=== PATIENT | female | born 1950 | race Caucasian/White ===

== ENCOUNTER 2017-07-04 07:52 | Emergency (ER) | payer MEDICARE, BC ==
[2017-07-04 08:38] VITALS: BP 149/77
--- NOTE | 2017-07-04 09:01 | UC ---
Throat Pain/Nasal Dat HPI - HPI Summary HPI Summary: ONE WEEK OF UPPER RESPIRATORY INFECTION, FEVER, COUGH, SINUS CONGESTION. NO THROAT PAIN. 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 Onset/Duration: Gradual Onset, Lasting Days Severity: Moderate Cough: Productive Associated Signs & Symptoms: Positive: Hoarseness, Nasal Discharge, Fever, Other - COUGH - Epiglottits Risk Factors Epiglottis Risk Factors: Negative - Allergies/Home Medications Allergies/Adverse Reactions: Allergies Allergy/AdvReac Type Severity Reaction Status Date / Time No Known Allergies Allergy Verified 07/04/17 08:01 PMH/Surg Hx/FS Hx/Imm Hx Previously Healthy: Yes - Surgical History Surgical History: None - Family History Known Family History: Negative: Respiratory Disease - Social History Occupation: Employed Full-time Lives: With Family Alcohol Use: Rare Substance Use Type: None Smoking Status (MU): Never Smoked Tobacco Review of Systems Constitutional: Fever Skin: Negative ENT: Ear Ache, Nasal Discharge, Sinus Congestion Respiratory: Cough Cardiovascular: Negative Gastrointestinal: Negative Genitourinary: Negative Motor: Negative Neurovascular: Negative Musculoskeletal: Negative Neurological: Negative Psychological: Negative Is Patient Immunocompromised?: No All Other Systems Reviewed And Are Negative: Yes Physical Exam Triage Information Reviewed: Yes Appearance: No Pain Distress, Well-Nourished, Ill-Appearing - MILDLY Vital Signs: Initial Vital Signs Temp 98 F 07/04/17 08:03 Pulse 90 07/04/17 08:03 Resp 18 07/04/17 08:03 BP 149/77 07/04/17 08:03 Pulse Ox 96 07/04/17 08:03 Vital Signs Reviewed: Yes Eye Exam: Normal ENT: Positive: Pharynx normal, Nasal congestion, TM bulging - BILATERAL S/P EAR IRRIGATION, TM dull, Other - BILATERAL CERUMEN IMPACTION Dental Exam: Normal Neck exam: Normal Respiratory Exam: Normal Respiratory: Positive: Chest non-tender, Lungs clear, Normal breath sounds, No respiratory distress, No accessory muscle use Cardiovascular Exam: Normal Cardiovascular: Positive: RRR, No Murmur, Pulses Normal Abdominal Exam: Normal Musculoskeletal Exam: Normal Neurological Exam: Normal Psychological Exam: Normal Skin Exam: Normal Throat Pain/Nasal Course/Dx - Differential Dx/Diagnosis Differential Diagnosis/HQI/PQRI: Pharyngitis, Sinusitis, Tonsillitis, URI Provider Diagnoses: SINUSITIS; BILATERAL CERUMEN IMPACTION; BRONCHITIS Discharge - Discharge Plan Condition: Stable Disposition: HOME Prescriptions: Amoxicillin/Clavulanate TAB* [Augmentin TAB 875*] 875 mg PO BID #20 tab Benzonatate CAP* [Tessalon 100 MG CAP*] 100 mg PO TID PRN #15 cap PRN Reason: Cough Patient Education Materials: Sinusitis (ED), Cerumen Impaction (ED), Acute Bronchitis (ED) Referrals: Valerie Rocha MD [Primary Care Provider] -
== END 2017-07-04 08:45 | disposition home or self-care (01) ==
LOC: UCEAST 07:52
DX: J32.9 Chronic sinusitis, unspecified (principal); J20.9 Acute bronchitis, unspecified; H61.23 Impacted cerumen, bilateral
CPT/HCPCS: 99213; G0463

== ENCOUNTER 2018-05-07 12:59 | Emergency (ER) | payer MEDICARE, BC ==
[2018-05-07 13:08] VITALS: BP 145/84
--- NOTE | 2018-05-07 13:57 | UC ---
Eye Complaint HPI - HPI Summary HPI Summary: In Room Note: The patient is a 67 y/o F presenting to [facility] with a chief complaint of left eye redness and drainage starting two days ago. She currently has a mild cold, which she has had since mid-March, which may be contributing to her current illness. She has recently had pink eye in spring 2017, which was treated with a a liquid medication. She denies chills, nausea, vomiting, and diarrhea. She has hx of seizures and Polio. She has FHx of cardiac disease. Note: Vital signs stable: BP 145/84, Afebrile. Visit history: noncontributory to present complaint. Hx of seizures and Polio. Nurse's Note: c/o left eye redness and drainage for one day. - History of Current Complaint Chief Complaint: UCEye Stated Complaint: EYE IRRITATION Time Seen by Provider: 05/07/18 13:43 Hx Obtained From: Patient ?: No Onset/Duration: Sudden Onset, Lasting Days - two days, Still Present Timing: Constant Severity Initially: Mild Severity Currently: Mild Pain Intensity: 0 Pain Scale Used: 0-10 Numeric Location of Injury: Conjunctiva - left Aggravating Factor(s): Nothing Alleviating Factor(s): Nothing Associated Signs And Symptoms: Positive: Drainage (Clear) - Allergies/Home Medications Allergies/Adverse Reactions: Allergies Allergy/AdvReac Type Severity Reaction Status Date / Time No Known Allergies Allergy Verified 05/07/18 13:11 PMH/Surg Hx/FS Hx/Imm Hx Endocrine History: Other Other Endocrine History: NEGATIVE: diabetes Cardiovascular History: Other Other Cardiovascular History: NEGATIVE: HTN Respiratory History: Bronchitis Neurological History: Seizures - Surgical History Surgical History: None - Family History Known Family History: Positive: Cardiac Disease Negative: Respiratory Disease - Social History Alcohol Use: Rare Substance Use Type: None Smoking Status (MU): Never Smoked Tobacco Review of Systems Constitutional: Negative Skin: Negative Eyes: Other - erythematous left eye with drainage ENT: Sinus Congestion Respiratory: Negative Cardiovascular: Negative Gastrointestinal: Negative Genitourinary: Negative Motor: Negative Neurovascular: Negative Musculoskeletal: Negative Neurological: Negative Psychological: Negative All Other Systems Reviewed And Are Negative: Yes - Comments Additional Review of Systems Comments: POSITIVE: erythematous left eye with drainage, sinus congestion; NEGATIVE: chills, nausea, vomiting, diarrhea Physical Exam - Summary Physical Exam Summary: Appearance: The patient is well-appearing, is in no pain distress, and is well- nourished. Eyes: Examination of the eye shows left eye diffusely injected particularly over the bulbar conjunctiva, PERLLA, EOM intact. ENT: The hearing is grossly normal, the pharynx is normal, and the TMs are normal. There is no muffled or hoarse voice. Mild discomfort of the maxillary sinuses. Crusting at distal nares. Neck: The neck is supple and there is no lymphadenopathy. Respiratory: The chest is nontender. The lungs are clear, there are normal breath sounds, and there is no respiratory distress. Cardiovascular: Heart is regular rate and rhythm. There is no murmur. Abdomen: The abdomen is soft and nontender. There is no organomegaly. Bowel sounds: present Musculoskeletal: Strength is intact. The patient moves all extremities. Neurological: The patient is alert. Motor and sensory examination grossly intact. Psychological: The patient displays age appropriate behavior Skin: Negative for rashes. Triage Information Reviewed: Yes Vital Signs: Initial Vital Signs Temp 98.9 F 05/07/18 13:05 Pulse 77 05/07/18 13:05 Resp 12 05/07/18 13:05 BP 145/84 05/07/18 13:05 Pulse Ox 97 05/07/18 13:05 Vital Signs Reviewed: Yes Eye Complaint Course/Dx - Course Course Of Treatment: 67 y/o f with cold and now has left eye conjuncivits. A 12 point review of systems was completed and significantly positive for: eye redness and drainage. The remainder of the review was negative except as stated above in the HPI. Medications have been included in the original chart and reviewed. Medications have been included in the original chart and reviewed. Patient will be referred to PCP within 1 day - 4 weeks for follow up for elevated BP. - Differential Dx/Diagnosis Provider Diagnoses: left eye conjunctivitis Discharge - Sign-Out/Discharge Documenting (check all that apply): Patient Departure - Patient will be discharged home. All imaging exams completed and their final reports reviewed: No Studies - Discharge Plan Condition: Stable Disposition: HOME Prescriptions: Polymyx/Trimethoprim OPTH* [Polytrim OPHTH*] 2 drop .SEE ORDER Q3H #1 btl MDD 5 DOSES A DAY Patient Education Materials: Conjunctivitis (ED) Referrals: Valerie Rocha MD [Primary Care Provider] - 1 Week Additional Instructions: Your blood pressure reading today was 145/84, indicating HYPERTENSION. Follow- up with your primary care provider within 4 weeks for blood pressure readings and further evaluation. PLEASE SEEK CARE AT THE EMERGENCY DEPARTMENT IF SYMPTOMS WORSEN OR IF NEW SYMPTOMS DEVELOP. FOLLOW UP WITH YOUR PRIMARY CARE PHYSICIAN. As we discussed, you have conjunctivitis of the left eye. Use the medication every 3 hours. As you improve, you can use the medicine every 4-6 hours. Total of 7 days. Use in right eye at night. Recheck if you get increased redness, pain or vision changes. - Billing Disposition and Condition Condition: STABLE Disposition: Home - Attestation Statements Document Initiated by Sha: Yes Documenting Scribe: Nieves Mckinney Provider For Whom Sha is Documenting (Include Credential): Dr. Terrence Cordoba MD Scribe Attestation: Nieves Phillips scribed for Dr. Terrence Cordoba MD on 05/07/18 at 1407. Scribe Documentation Reviewed: Yes Provider Attestation: The documentation as recorded by the Nieves mclean accurately reflects the service I personally performed and the decisions made by me, Dr. Terrence Cordoba MD
== END 2018-05-07 14:09 | disposition home or self-care (01) ==
LOC: UCEAST 12:59
DX: H10.32 Unspecified acute conjunctivitis, left eye (principal)
CPT/HCPCS: 99212; G0463

== ENCOUNTER 2019-04-02 18:45 | Emergency (ER) | payer MEDICARE, BC ==
[2019-04-02 18:57] VITALS: BP 139/69
--- NOTE | 2019-04-02 18:59 | UC ---
Eye Complaint HPI - HPI Summary HPI Summary: 68 yo female presents with LEFT eye redness and drainage since this morning. She tells me that yesterday she was at the [place] with her young grandchildren and was taking care of them most of the day. This morning she woke with a red left eye with clear/white discharge. Throughout the day her eye has been irritated and itchy. She denies trauma, FB in the eye, vision changes, or fever. She does not wear contacts. - History of Current Complaint Chief Complaint: UCEye Stated Complaint: EYE COMPLAINT Time Seen by Provider: 04/02/19 18:59 Hx Obtained From: Patient Onset/Duration: Sudden Onset Severity Currently: None Pain Intensity: 0 - Allergies/Home Medications Allergies/Adverse Reactions: Allergies Allergy/AdvReac Type Severity Reaction Status Date / Time clindamycin Allergy Rash Verified 02/25/19 11:33 PMH/Surg Hx/FS Hx/Imm Hx - Additional Past Medical History Additional PMH: Seizures - Surgical History Surgical History: None - Family History Known Family History: Positive: Cardiac Disease, Diabetes Negative: Hypertension, Respiratory Disease - Social History Lives: With Family Alcohol Use: None Substance Use Type: None Smoking Status (MU): Never Smoked Tobacco Have You Smoked in the Last Year: No Review of Systems All Other Systems Reviewed And Are Negative: Yes Skin: Positive: Negative Eyes: Positive: Drainage, Eye Redness ENT: Positive: Negative Respiratory: Positive: Negative Cardiovascular: Positive: Negative Neurovascular: Positive: Negative Neurological: Positive: Negative Psychological: Positive: Negative Physical Exam - Summary Physical Exam Summary: GENERAL: WDWN. No pain distress. SKIN: No rashes, sores, lesions, or open wounds. HEENT: Head: AT/NC Eyes: EOM intact. PERRLA. LEFT EYE: Mild scleral injection. Conjunctiva with mild erythema and inflammation. Mild clear discharge. RIGHT EYE : Conjunctiva clear without inflammation or discharge. No FBs appreciated Nose: NTTP maxillary and frontal sinus. NECK: Supple. Nontender. No lymphadenopathy. CHEST: No accessory muscle use. Breathing comfortably and in no distress. CV: Pulses intact. Cap refill <2seconds NEURO: Alert. PSYCH: Age appropriate behavior. Triage Information Reviewed: Yes Vital Signs: Initial Vital Signs Temp 97.9 F 04/02/19 18:52 Pulse 65 04/02/19 18:52 Resp 16 04/02/19 18:52 BP 139/69 04/02/19 18:52 Pulse Ox 99 04/02/19 18:52 Vital Signs Reviewed: Yes Eye Complaint Course/Dx - Course Course Of Treatment: Left eye conjunctivitis - Differential Dx/Diagnosis Provider Diagnosis: Left conjunctivitis Discharge - Sign-Out/Discharge Documenting (check all that apply): Patient Departure All imaging exams completed and their final reports reviewed: No Studies - Discharge Plan Condition: Stable Disposition: HOME Prescriptions: Ofloxacin 0.3% (Eye Drop) [Ocuflox OPTH 0.3% (Eye Drop)] 1 drop LEFT EYE QID #1 btl Patient Education Materials: Pterygium (ED), Conjunctivitis (ED) Referrals: Valerie Rocha MD [Primary Care Provider] - Additional Instructions: If you develop a fever, shortness of breath, chest pain, new or worsening symptoms - please call your PCP or go to the ED immediately. - Billing Disposition and Condition Condition: STABLE Disposition: Home - Attestation Statements Provider Attestation: I was available for consult. This patient was seen by the LONNIE. The patient was not presented to, seen by, or examined by me. -Vu
[2019-04-02] MEDS ORDERED: Ciprofloxacin 0.3% OPTH.SOL* BTL LEFT EYE ONE (19:07)
== END 2019-04-02 19:30 | disposition home or self-care (01) ==
LOC: UCEAST 18:45
DX: H10.9 Unspecified conjunctivitis (principal)
CPT/HCPCS: 99212; A9270-GY; G0463

== ENCOUNTER 2020-04-13 12:05 | Inpatient (IN) ==
[2020-04-13 14:23] LABS: Hematocrit 39 % (35-47); Hemoglobin 13.5 g/dL (12.0-16.0); Mean Corpuscular HGB Conc 35 g/dL (31-36); Mean Corpuscular Hemoglobin 32 pg (27-31); Mean Corpuscular Volume 93 fL (80-97); Mean Platelet Volume 7.6 fL (7.4-10.4); Platelet Count 144 10^3/uL (150-450); Red Cell Distribution Width 13 % (10-15); White Blood Count 23.7 10^3/uL (3.5-10.8)
[2020-04-13 14:48] LABS: INR 1.44 (0.82-1.09)
[2020-04-13 14:51] LABS: Rapid Strep Molecular Negative (Negative)
[2020-04-13 14:54] LABS: Albumin 4.3 g/dL (3.2-5.2); C Reactive Protein 359.45 mg/L (<8.01); EGFR African American 85.6 (>60); EGFR Non-African American 70.7 (>60); Globulin 2.1 g/dL (2-4); Potassium 3.8 mmol/L (3.5-5.0); Total Protein 6.4 g/dL (6.4-8.9)
[2020-04-13 15:06] LABS: ABS Neutrophils 0.2 10^3/ul (1.5-7.7)
[2020-04-13] MEDS ORDERED: NS 0.9% 1000 ml BAG 1,000 ML IV ONE ×2 (15:06→17:17)
[2020-04-13 16:02] LABS: ABS Lymphocytes 22.7 10^3/ul (1.0-4.8); ABS Monocytes 0.6 10^3/ul (0-0.8); ABS Nucleated RBC 0.1 10^3/ul; Lymphocyte % 96.8 %; Nucleated Red Blood Cells % 0.4
[2020-04-13] MEDS ORDERED: Cefepime 1 GM in Dextrose 1 GM/50 ML BAG IV ONE (16:22)
[2020-04-13] MEDS ORDERED: Cefepime 2 GM in Dextrose 2 GM/50 ML BAG IV SCH (18:00)
[2020-04-13 18:12] LABS: Urine Appearance Cloudy; Urine Bilirubin Negative (Negative); Urine Blood 2+ (Negative); Urine Color Yellow; Urine Glucose Negative (Negative); Urine Ketones 1+ (Negative); Urine Nitrite Negative (Negative); Urine Protein 2+(100 mg/dL) (Negative); Urine Specific Gravity 1.028 (1.010-1.030); Urine Urobilinogen Negative (Negative)
[2020-04-13 18:16] LABS: Urine Bacteria Absent (Absent); Urine Red Blood Cell 2+(6-10/hpf) (Absent); Urine Squamous Epithelial Cell Present (Absent); Urine White Blood Cell 3+(>20/hpf) (Absent)
[2020-04-13] MEDS: NS 0.9% 1000 ml BAG 1,000 ML IV SCH ×2 (19:12→20:02)
[2020-04-13] MEDS: Heparin 5000 UNITS/ML 1 mL VIAL SUBCUT SCH (21:55)
[2020-04-14] MEDS: Heparin 5000 UNITS/ML 1 mL VIAL SUBCUT SCH ×3 (05:21→20:19)
[2020-04-14] MEDS: NS 0.9% 1000 ml BAG 1,000 ML IV SCH ×2 (05:22→20:18)
[2020-04-14] MEDS: Cefepime 2 GM in Dextrose 2 GM/50 ML BAG IV SCH ×2 (05:22→17:14)
[2020-04-14 06:51] LABS: Hematocrit 33 % (35-47); Hemoglobin 11.6 g/dL (12.0-16.0); Mean Corpuscular HGB Conc 35 g/dL (31-36); Mean Corpuscular Hemoglobin 33 pg (27-31); Mean Corpuscular Volume 93 fL (80-97); Mean Platelet Volume 7.5 fL (7.4-10.4); Platelet Count 105 10^3/uL (150-450); Red Blood Count 3.57 10^6 /uL (3.70-4.87); Red Cell Distribution Width 14 % (10-15)
[2020-04-14 07:03] LABS: ABS Lymphocytes 16.4 10^3/ul (1.0-4.8); ABS Monocytes 0.5 10^3/ul (0-0.8); ABS Neutrophils 0.1 10^3/ul (1.5-7.7); ABS Nucleated RBC 0.1 10^3/ul; Eosinophil % 0.1 %; Lymphocyte % 96.2 %; Nucleated Red Blood Cells % 0.3
[2020-04-14 07:11] LABS: Albumin 3.2 g/dL (3.2-5.2); Albumin/Globulin Ratio 1.7 (1-3); BUN/Creatinine Ratio 25.5 (8-20); Calcium 7.8 mg/dL (8.6-10.3); EGFR African American 143.8 (>60); EGFR Non-African American 118.9 (>60); Globulin 1.9 g/dL (2-4); Potassium 3.4 mmol/L (3.5-5.0); Total Bilirubin 0.9 mg/dL (0.2-1.0); Total Protein 5.1 g/dL (6.4-8.9)
[2020-04-14] MEDS: Benzocaine/Menthol LOZ MT PRN ×2 (12:18→20:19)
[2020-04-15] MEDS: NS 0.9% 1000 ml BAG 1,000 ML IV SCH (04:44)
[2020-04-15] MEDS: Heparin 5000 UNITS/ML 1 mL VIAL SUBCUT SCH ×3 (04:55→20:48)
[2020-04-15] MEDS: Cefepime 2 GM in Dextrose 2 GM/50 ML BAG IV SCH (04:55)
[2020-04-15 06:26] LABS: Hematocrit 31 % (35-47); Hemoglobin 10.7 g/dL (12.0-16.0); Mean Corpuscular HGB Conc 35 g/dL (31-36); Mean Corpuscular Hemoglobin 32 pg (27-31); Mean Corpuscular Volume 93 fL (80-97); Mean Platelet Volume 8.4 fL (7.4-10.4); Platelet Count 107 10^3/uL (150-450); Red Blood Count 3.32 10^6 /uL (3.70-4.87); Red Cell Distribution Width 14 % (10-15); White Blood Count 18.4 10^3/uL (3.5-10.8)
[2020-04-15 06:42] LABS: ABS Monocytes 0.8 10^3/ul (0-0.8); Eosinophil % 0.1 %; Lymphocyte % 92.3 %; Nucleated Red Blood Cells % 0.1
[2020-04-15 06:44] LABS: Calcium 7.4 mg/dL (8.6-10.3); EGFR African American 170.6 (>60); Potassium 3.1 mmol/L (3.5-5.0)
[2020-04-15] MEDS ORDERED: Perflutren Lipid Microsphere 3 ML VIAL ONE (08:13)
[2020-04-15] MEDS ORDERED: Potassium Chlor 20 meq TAB.ER PO ONE (08:48)
[2020-04-15] MEDS: KCL 20 MEQ/100 ML IVPREMIX 20 MEQ/100 ML BAG IV SCH ×3 (09:43→17:20)
[2020-04-15 10:00] LABS: ABS Neutrophils 0.6 10^3/ul (1.5-7.7)
[2020-04-15] MEDS ORDERED: Lidocaine 2% 10 ML VIAL INJ ONE (12:00)
[2020-04-15] MEDS: Furosemide 40 mg/4 ml IV VIAL IV SCH ×2 (12:43→20:56)
[2020-04-15] MEDS ORDERED: Iodixanol (CONTRAST) 320 MG/ML 100 ML SDV IV ONE (14:20)
[2020-04-15 16:42] LABS: BUN/Creatinine Ratio 18.8 (8-20); EGFR African American 154.3 (>60); EGFR Non-African American 127.5 (>60); Potassium 3.7 mmol/L (3.5-5.0)
[2020-04-15] MEDS ORDERED: Piperacillin/Tazobac ADVAN 3.375 GM in NS 0.9% 100 ml BAG 100 ML IVPB ONE (16:48)
[2020-04-15] MEDS ORDERED: Zosyn per Pharmacy NOTE FOLLOW UP SCH (17:00)
[2020-04-15] MEDS ORDERED: Potassium Chloride LIQUID 20 MEQ/15 ML LIQUID PO ONE (17:00)
[2020-04-15] MEDS: ZOSYN 3.375 GM Q8H per EXTENDED INFUSION IV SCH (20:56)
[2020-04-16] MEDS: ZOSYN 3.375 GM Q8H per EXTENDED INFUSION IV SCH ×3 (04:25→21:05)
[2020-04-16] MEDS: Heparin 5000 UNITS/ML 1 mL VIAL SUBCUT SCH ×3 (05:13→22:55)
[2020-04-16 07:20] LABS: Calcium 7.2 mg/dL (8.6-10.3); EGFR African American 147.2 (>60); EGFR Non-African American 121.6 (>60); Magnesium 1.4 mg/dL (1.9-2.7)
[2020-04-16 07:28] LABS: Potassium 2.7 mmol/L (3.5-5.0)
[2020-04-16 07:46] LABS: Carbamazepine 15.6 mcg/mL (4.0-12.0)
[2020-04-16] MEDS ORDERED: Magnesium Sulfate 3 GM IV IVPB ONE (08:00)
[2020-04-16] MEDS: Furosemide 40 mg/4 ml IV VIAL IV SCH ×2 (08:39→21:27)
[2020-04-16] MEDS: Benzocaine/Menthol LOZ MT PRN (09:18)
[2020-04-16 09:21] LABS: Hematocrit 31 % (35-47); Hemoglobin 10.7 g/dL (12.0-16.0); Mean Corpuscular HGB Conc 35 g/dL (31-36); Mean Corpuscular Hemoglobin 32 pg (27-31); Mean Corpuscular Volume 93 fL (80-97); Mean Platelet Volume 7.9 fL (7.4-10.4); Platelet Count 133 10^3/uL (150-450); Red Cell Distribution Width 13 % (10-15); White Blood Count 29.1 10^3/uL (3.5-10.8)
[2020-04-16 09:35] LABS: ABS Monocytes 1.1 10^3/ul (0-0.8); Eosinophil % 0.1 %; Lymphocyte % 89.4 %; Nucleated Red Blood Cells % 0.1
[2020-04-16 10:14] LABS: Troponin I 0.35 ng/mL (<0.03)
[2020-04-16 11:27] LABS: Troponin I 0.28 ng/mL (<0.03)
[2020-04-16 14:10] LABS: Calcium 7.5 mg/dL (8.6-10.3); EGFR African American 147.2 (>60); EGFR Non-African American 121.6 (>60); Magnesium 2.8 mg/dL (1.9-2.7)
[2020-04-16 14:15] LABS: Potassium 2.6 mmol/L (3.5-5.0)
[2020-04-16] MEDS: KCL 20 MEQ/100 ML IVPREMIX 20 MEQ/100 ML BAG IV SCH ×3 (14:46→22:58)
[2020-04-16] MEDS ORDERED: Potassium Chlor 20 meq TAB.ER PO ONE (17:23)
[2020-04-16 18:04] LABS: Influenza A Molecular Negative (Negative); Influenza B Molecular Negative (Negative)
[2020-04-16 19:06] LABS: Calcium 7.5 mg/dL (8.6-10.3); EGFR African American 147.2 (>60); EGFR Non-African American 121.6 (>60); Potassium 2.8 mmol/L (3.5-5.0)
[2020-04-16] MEDS ORDERED: KCL 20 MEQ/100 ML IVPREMIX 20 MEQ/100 ML BAG ONE (22:56)
[2020-04-17 02:08] LABS: Anion Gap 8 mmol/L (2-11); CO2 Carbon Dioxide 31 mmol/L (22-32); Calcium 7.6 mg/dL (8.6-10.3); Chloride 99 mmol/L (101-111); Potassium 3.5 mmol/L (3.5-5.0); Sodium 138 mmol/L (135-145)
[2020-04-17 02:13] LABS: BUN/Creatinine Ratio 15.2 (8-20); Blood Urea Nitrogen 7 mg/dL (6-24); EGFR Non-African American 133.9 (>60); Glucose 114 mg/dL (70-100)
[2020-04-17] MEDS: ZOSYN 3.375 GM Q8H per EXTENDED INFUSION IV SCH ×3 (05:32→21:56)
[2020-04-17] MEDS: Heparin 5000 UNITS/ML 1 mL VIAL SUBCUT SCH ×3 (05:32→21:52)
[2020-04-17 07:32] LABS: Hematocrit 32 % (35-47); Hemoglobin 11.1 g/dL (12.0-16.0); Mean Corpuscular HGB Conc 35 g/dL (31-36); Mean Corpuscular Hemoglobin 33 pg (27-31); Mean Corpuscular Volume 92 fL (80-97); Mean Platelet Volume 7.7 fL (7.4-10.4); Platelet Count 153 10^3/uL (150-450); Red Blood Count 3.41 10^6 /uL (3.70-4.87); Red Cell Distribution Width 13 % (10-15); White Blood Count 32.8 10^3/uL (3.5-10.8)
[2020-04-17 07:51] LABS: Albumin 3.2 g/dL (3.2-5.2); Albumin/Globulin Ratio 1.5 (1-3); BUN/Creatinine Ratio 17.4 (8-20); Calcium 7.6 mg/dL (8.6-10.3); EGFR Non-African American 133.9 (>60); Globulin 2.1 g/dL (2-4); Potassium 3.1 mmol/L (3.5-5.0); Total Bilirubin 0.8 mg/dL (0.2-1.0); Total Protein 5.3 g/dL (6.4-8.9)
[2020-04-17 07:55] LABS: Carbamazepine 6.5 mcg/mL (4.0-12.0)
[2020-04-17] MEDS: Furosemide 40 mg/4 ml IV VIAL IV SCH ×2 (08:13→21:54)
[2020-04-17 09:15] LABS: ABS Eosinophils 0.1 10^3/ul (0-0.6); ABS Lymphocytes 28.7 10^3/ul (1.0-4.8); ABS Monocytes 1.1 10^3/ul (0-0.8); ABS Neutrophils 2.9 10^3/ul (1.5-7.7); Eosinophil % 0.2 %; Lymphocyte % 87.5 %; Nucleated Red Blood Cells % 0.1
[2020-04-17] MEDS ORDERED: Potassium Chlor 20 meq TAB.ER PO ONE (12:12)
[2020-04-17] MEDS ORDERED: Potassium Chloride LIQUID 20 MEQ/15 ML LIQUID PO ONE (16:50)
[2020-04-17 17:26] LABS: Troponin I 0.21 ng/mL (<0.03)
[2020-04-18] MEDS: Heparin 5000 UNITS/ML 1 mL VIAL SUBCUT SCH ×3 (05:35→20:51)
[2020-04-18] MEDS: ZOSYN 3.375 GM Q8H per EXTENDED INFUSION IV SCH (05:35)
[2020-04-18 05:55] LABS: Anion Gap 11 mmol/L (2-11); BUN/Creatinine Ratio 21.7 (8-20); Blood Urea Nitrogen 10 mg/dL (6-24); CO2 Carbon Dioxide 31 mmol/L (22-32); Calcium 8.5 mg/dL (8.6-10.3); Chloride 96 mmol/L (101-111); EGFR Non-African American 133.9 (>60); Glucose 107 mg/dL (70-100); Potassium 3.2 mmol/L (3.5-5.0); Sodium 138 mmol/L (135-145)
[2020-04-18 05:59] LABS: Troponin I 0.07 ng/mL (<0.03)
[2020-04-18 06:17] LABS: Carbamazepine 10.9 mcg/mL (4.0-12.0)
[2020-04-18] MEDS: Potassium Chlor 20 meq TAB.ER PO SCH ×2 (10:13→20:51)
[2020-04-19] MEDS: Heparin 5000 UNITS/ML 1 mL VIAL SUBCUT SCH (05:32)
[2020-04-19] MEDS ORDERED: Lorazepam PYXIS KEY ONE ×2 (07:56→09:10)
[2020-04-19] MEDS ORDERED: LORazepam 2 mg VIAL 1 ml ONE (07:56)
[2020-04-19] MEDS ORDERED: Aminophylline 25 MG/ML VIAL ONE (08:09)
[2020-04-19] MEDS ORDERED: Regadenoson 0.4 MG/5 ML SYRINGE ONE (08:09)
[2020-04-19] MEDS: Potassium Chlor 20 meq TAB.ER PO SCH (09:57)
[2020-04-19 13:53] VITALS: BP 112/59
[2020-04-20 14:06] LABS: Cytomegalovirus IgG Antibody Negative (Negative)
== END 2020-04-19 13:44 | DRG 872 ==
LOC: ED 12:05 → MED 18:08 → MEDTELE 04-15 20:12 → MED 04-16 19:00
PROVIDERS: ADMIT Internal Medicine; ATTEND Student in an Organized Health Care Education/Training Program

== ENCOUNTER 2020-04-19 13:28 | Inpatient (IN) ==
[2020-04-19] MEDS ORDERED: Senna TAB 8.6 mg TAB PO PRN (15:06)
[2020-04-19] MEDS ORDERED: Magnesium Hydroxide LIQ 30 ML UDC PO PRN (15:06)
[2020-04-19] MEDS: Heparin 5000 UNITS/ML 1 mL VIAL SUBCUT SCH (21:32)
[2020-04-19] MEDS: Potassium Chlor 20 meq TAB.ER PO SCH (21:33)
[2020-04-20] MEDS: Heparin 5000 UNITS/ML 1 mL VIAL SUBCUT SCH ×3 (06:19→21:44)
[2020-04-20] MEDS: Potassium Chlor 20 meq TAB.ER PO SCH ×2 (10:02→20:41)
[2020-04-20] MEDS: Aspirin EC 81 mg TAB.EC (enteric coated) PO SCH (10:02)
[2020-04-21 05:05] LABS: Hematocrit 34 % (35-47); Hemoglobin 11.1 g/dL (12.0-16.0); Mean Corpuscular HGB Conc 32 g/dL (31-36); Mean Corpuscular Hemoglobin 31 pg (27-31); Mean Corpuscular Volume 95 fL (80-97); Mean Platelet Volume 7.3 fL (7.4-10.4); Platelet Count 279 10^3/uL (150-450); Red Blood Count 3.59 10^6 /uL (3.70-4.87); Red Cell Distribution Width 13 % (10-15); White Blood Count 56.3 10^3/uL (3.5-10.8)
[2020-04-21 05:21] LABS: Calcium 8.6 mg/dL (8.6-10.3); EGFR Non-African American 148.7 (>60); Potassium 4.7 mmol/L (3.5-5.0)
[2020-04-21] MEDS: Heparin 5000 UNITS/ML 1 mL VIAL SUBCUT SCH ×3 (06:07→20:51)
[2020-04-21] MEDS: Aspirin EC 81 mg TAB.EC (enteric coated) PO SCH (09:20)
[2020-04-21] MEDS: Potassium Chlor 20 meq TAB.ER PO SCH (09:21)
[2020-04-21 10:42] LABS: ABS Basophils 0.1 10^3/ul (0-0.2); ABS Eosinophils 0.1 10^3/ul (0-0.6); ABS Lymphocytes 44.1 10^3/ul (1.0-4.8); ABS Monocytes 1.4 10^3/ul (0-0.8); ABS Neutrophils 10.7 10^3/ul (1.5-7.7); ABS Nucleated RBC 0.1 10^3/ul; Eosinophil % 0.1 %; Lymphocyte % 78.4 %; Nucleated Red Blood Cells % 0.2
[2020-04-21] MEDS: guaiFENesin 100 mg/5 ml LIQ unit dose cup PO PRN (15:05)
[2020-04-21] MEDS: Benzocaine/Menthol LOZ PO PRN (17:39)
[2020-04-22] MEDS: Benzocaine/Menthol LOZ PO PRN (03:08)
[2020-04-22] MEDS: Heparin 5000 UNITS/ML 1 mL VIAL SUBCUT SCH ×3 (05:49→21:38)
[2020-04-22 06:36] LABS: Hematocrit 33 % (35-47); Hemoglobin 11.1 g/dL (12.0-16.0); Mean Corpuscular HGB Conc 34 g/dL (31-36); Mean Corpuscular Hemoglobin 32 pg (27-31); Mean Corpuscular Volume 94 fL (80-97); Mean Platelet Volume 7.5 fL (7.4-10.4); Platelet Count 278 10^3/uL (150-450); Red Blood Count 3.46 10^6 /uL (3.70-4.87); Red Cell Distribution Width 14 % (10-15); White Blood Count 55.1 10^3/uL (3.5-10.8)
[2020-04-22 06:53] LABS: Carbamazepine 7.2 mcg/mL (4.0-12.0)
[2020-04-22 06:55] LABS: Albumin 3.4 g/dL (3.2-5.2); Albumin/Globulin Ratio 1.5 (1-3); BUN/Creatinine Ratio 17.5 (8-20); Calcium 8.6 mg/dL (8.6-10.3); EGFR African American 190.4 (>60); EGFR Non-African American 157.3 (>60); Globulin 2.2 g/dL (2-4); Potassium 4.3 mmol/L (3.5-5.0); Total Bilirubin 0.7 mg/dL (0.2-1.0); Total Protein 5.6 g/dL (6.4-8.9)
[2020-04-22 07:29] LABS: ABS Basophils 0.1 10^3/ul (0-0.2); ABS Eosinophils 0.1 10^3/ul (0-0.6); ABS Lymphocytes 44.6 10^3/ul (1.0-4.8); ABS Neutrophils 9.3 10^3/ul (1.5-7.7); ABS Nucleated RBC 0.1 10^3/ul; Eosinophil % 0.2 %; Lymphocyte % 80.9 %; Nucleated Red Blood Cells % 0.1
[2020-04-22] MEDS: Aspirin EC 81 mg TAB.EC (enteric coated) PO SCH (10:17)
[2020-04-22] MEDS: guaiFENesin 100 mg/5 ml LIQ unit dose cup PO PRN (19:54)
[2020-04-23] MEDS: Heparin 5000 UNITS/ML 1 mL VIAL SUBCUT SCH ×3 (05:45→21:20)
[2020-04-23] MEDS: Aspirin EC 81 mg TAB.EC (enteric coated) PO SCH (08:16)
[2020-04-23] MEDS: Benzocaine/Menthol LOZ PO PRN (08:18)
[2020-04-23 19:25] LABS: Rapid Strep Molecular Negative (Negative)
[2020-04-23] MEDS: guaiFENesin 100 mg/5 ml LIQ unit dose cup PO PRN (19:58)
[2020-04-24] MEDS: Heparin 5000 UNITS/ML 1 mL VIAL SUBCUT SCH (05:47)
[2020-04-24 05:58] VITALS: BP 129/62
[2020-04-24 07:29] LABS: BUN/Creatinine Ratio 24.3 (8-20); Calcium 8.6 mg/dL (8.6-10.3); EGFR African American 208.3 (>60); EGFR Non-African American 172.2 (>60); Potassium 4.1 mmol/L (3.5-5.0)
[2020-04-24] MEDS: Aspirin EC 81 mg TAB.EC (enteric coated) PO SCH (09:36)
== END 2020-04-24 11:20 | disposition home health service (06) | DRG 92 ==
LOC: PMRU 14:46
PROVIDERS: ADMIT Physical Medicine & Rehabilitation; ATTEND Physical Medicine & Rehabilitation

== ENCOUNTER 2024-07-14 16:59 | Inpatient (IN) ==
[2024-07-14 18:41] LABS: Hematocrit 38.2 % (35-45); Mean Corpuscular Hemoglobin 32.4 pg (27-33); Mean Corpuscular Hgb Conc 33.9 g/dL (31-36); Mean Corpuscular Volume 95.4 fL (80-97); Mean Platelet Volume 7.7 fL (7.5-11.2); Platelet Count 147 10^3/uL (150-450); Red Blood Count 4.01 10^6/uL (3.63-4.92); White Blood Count 32.7 10^3/uL (3.8-11.8)
[2024-07-14 18:47] LABS: INR 1.04 (0.85-1.14)
[2024-07-14 19:07] LABS: ABS Basophils 0.1 10^3/uL (0.0-0.1); ABS Eosinophils 0.1 10^3/uL (0.0-0.5); ABS Lymphocytes 28.5 10^3/uL (1.0-4.8); ABS Monocytes 0.7 10^3/uL (0.0-0.9); ABS Neutrophils 3.4 10^3/uL (1.5-7.6); ABS Nucleated RBC 0.08 10^3/ul; Eosinophil % 0.3 %; Lymphocyte % 87.2 %; Nucleated Red Blood Cells % 0.2 %/100WBC (0.0-0.8)
[2024-07-14 19:18] LABS: Albumin 4.3 g/dL (3.2-5.2); Albumin/Globulin Ratio 3.3 (1-3); Calcium 8.9 mg/dL (8.6-10.3); Creatinine, Serum 0.66 mg/dL (0.51-0.95); Globulin 1.3 g/dL (2-4); Potassium 4.1 mmol/L (3.5-5.0); Total Bilirubin 0.6 mg/dL (0.2-1.0); Total Protein 5.6 g/dL (6.4-8.9); eGFR CKD-EPI 91.4 (>60)
[2024-07-14] MEDS: Heparin 5000 UNITS/ML 1 mL VIAL SUBCUT SCH (20:18)
[2024-07-14] MEDS ORDERED: fentaNYL 100 mcg/2 ml 50 MCG/ML VIAL IV SLOW PU PRN (21:23)
[2024-07-14 21:32] LABS: Urine Appearance Clear; Urine Bilirubin Negative (Negative); Urine Blood Trace (Negative); Urine Color Light-Yellow; Urine Glucose Negative (Negative); Urine Ketones 1+ (Negative); Urine Nitrite Negative (Negative); Urine Protein Negative (Negative); Urine Specific Gravity 1.013 (1.002-1.030); Urine Urobilinogen Negative (Negative); Urine pH 5.5 (5.0-8.0)
[2024-07-15] MEDS: Acetaminophen IV 1 GM/100ML 1,000 MG/100 ML BAG IV PRN (04:02)
[2024-07-15 05:44] LABS: Hematocrit 35.4 % (35-45); Hemoglobin 12.1 g/dL (11.5-14.3); Mean Corpuscular Hemoglobin 32.7 pg (27-33); Mean Corpuscular Hgb Conc 34.2 g/dL (31-36); Mean Corpuscular Volume 95.5 fL (80-97); Mean Platelet Volume 7.5 fL (7.5-11.2); Platelet Count 128 10^3/uL (150-450); Red Blood Count 3.71 10^6/uL (3.63-4.92); Red Cell Distribution Width 13.6 % (12-17); White Blood Count 29.2 10^3/uL (3.8-11.8)
[2024-07-15 06:18] LABS: Calcium 8.6 mg/dL (8.6-10.3); Creatinine, Serum 0.69 mg/dL (0.51-0.95); Potassium 4.7 mmol/L (3.5-5.0); eGFR CKD-EPI 90.4 (>60)
[2024-07-15 07:47] LABS: ABS Basophils 0.1 10^3/uL (0.0-0.1); ABS Eosinophils 0.2 10^3/uL (0.0-0.5); ABS Lymphocytes 25.9 10^3/uL (1.0-4.8); ABS Monocytes 0.5 10^3/uL (0.0-0.9); ABS Neutrophils 2.5 10^3/uL (1.5-7.6); ABS Nucleated RBC 0.06 10^3/ul; Eosinophil % 0.7 %; Lymphocyte % 88.7 %; Nucleated Red Blood Cells % 0.2 %/100WBC (0.0-0.8)
[2024-07-15] MEDS ORDERED: fentaNYL 100 mcg/2 ml 50 MCG/ML VIAL ONE ×2 (08:47→11:46)
[2024-07-15] MEDS ORDERED: Propofol 10 MG/ML 20 ML BTL ONE (08:47)
[2024-07-15] MEDS ORDERED: Midazolam 2 mg/2 ml VIAL 1 mg/ml 2 ml VIAL (2 mg) ONE (08:47)
[2024-07-15] MEDS ORDERED: Lidocaine 2% PF 5 ML VIAL ONE (08:48)
[2024-07-15] MEDS ORDERED: Rocuronium 50 mg VIAL 10 mg/ml 5 ml VIAL (50 mg) ONE (08:48)
[2024-07-15] MEDS ORDERED: ceFAZolin 2 GM PREMIX 2 GM/50 ML BAG ONE (09:19)
[2024-07-15] MEDS ORDERED: Ondansetron 4 mg VIAL 2 MG/ML 2 ml VIAL IV PRN (09:23)
[2024-07-15] MEDS ORDERED: Naloxone 0.4 mg VIAL 0.4 mg/ml 1 ml VIAL IV PRN (09:23)
[2024-07-15] MEDS ORDERED: Metoclopramide 5 MG/ML VIAL (10 mg) IV PRN (09:23)
[2024-07-15] MEDS: Buffered Lidocaine 1% SYRIN 1 ml INTRADERM ONE (09:50)
[2024-07-15] MEDS: Scopolamine 1 mg/72hr PATCH TRANSDERM ONE (09:51)
[2024-07-15] MEDS ORDERED: Phenylephrine 40 mcg/mL 10mL (400mcg) SYRINGE ONE (09:59)
[2024-07-15] MEDS ORDERED: NS 0.45% 1000 ml BAG 1,000 ML IV SCH (10:00)
[2024-07-15] MEDS ORDERED: Ondansetron 4 mg VIAL 2 MG/ML 2 ml VIAL ONE (10:08)
[2024-07-15] MEDS ORDERED: Dexamethasone IV 4 MG/ML VIAL 1 ml VIAL ONE (10:08)
[2024-07-15] MEDS ORDERED: Phenylephrine IV 10 MG/ML 1 ml VIAL ONE (10:22)
[2024-07-15] MEDS: Acetaminophen IV 1 GM/100ML 1,000 MG/100 ML BAG IV ONE (11:21)
[2024-07-15] MEDS ORDERED: Acetaminophen IV 1 GM/100ML 1,000 MG/100 ML BAG IV ONE (11:21)
[2024-07-15] MEDS: fentaNYL 100 mcg/2 ml 50 MCG/ML VIAL IV PRN (11:47)
[2024-07-15] MEDS ORDERED: oxyCODONE SR 10 mg TAB PO PRN (14:00)
[2024-07-15] MEDS: Lactated Ringers 1000 ml BAG 1,000 ML IV SCH (14:16)
[2024-07-15] MEDS: ceFAZolin 1 GM ADVAN 1 GM in NS 0.9% 50 ML 50 ML IVPB SCH (17:33)
[2024-07-16 05:43] LABS: Hematocrit 32.5 % (35-45); Hemoglobin 11.1 g/dL (11.5-14.3); Mean Corpuscular Hemoglobin 32.7 pg (27-33); Mean Corpuscular Hgb Conc 34.1 g/dL (31-36); Mean Corpuscular Volume 95.9 fL (80-97); Mean Platelet Volume 7.7 fL (7.5-11.2); Platelet Count 114 10^3/uL (150-450); Red Blood Count 3.39 10^6/uL (3.63-4.92); Red Cell Distribution Width 13.7 % (12-17); White Blood Count 25.5 10^3/uL (3.8-11.8)
[2024-07-16 06:07] LABS: ABS Basophils 0.1 10^3/uL (0.0-0.1); ABS Eosinophils 0.2 10^3/uL (0.0-0.5); ABS Lymphocytes 21.7 10^3/uL (1.0-4.8); ABS Monocytes 0.6 10^3/uL (0.0-0.9); ABS Neutrophils 2.9 10^3/uL (1.5-7.6); ABS Nucleated RBC 0.06 10^3/ul; Eosinophil % 0.6 %; Lymphocyte % 85.3 %; Nucleated Red Blood Cells % 0.2 %/100WBC (0.0-0.8); Smudge Cells Present
[2024-07-16 06:31] LABS: Calcium 8.3 mg/dL (8.6-10.3); Creatinine, Serum 0.5 mg/dL (0.51-0.95); Magnesium 1.7 mg/dL (1.9-2.7); Potassium 3.7 mmol/L (3.5-5.0); eGFR CKD-EPI 97.7 (>60)
[2024-07-16] MEDS: Magnesium Sulfate 2 gm BAG 2 GM/50 ML BAG IVPB ONE (08:13)
[2024-07-16] MEDS: Enoxaparin 40 MG/0.4 ML SYR SUBCUT SCH (08:13)
[2024-07-17 05:49] LABS: Hematocrit 32.9 % (35-45); Hemoglobin 11.2 g/dL (11.5-14.3); Mean Corpuscular Hemoglobin 32.6 pg (27-33); Mean Corpuscular Hgb Conc 34.1 g/dL (31-36); Mean Corpuscular Volume 95.6 fL (80-97); Mean Platelet Volume 7.6 fL (7.5-11.2); Platelet Count 128 10^3/uL (150-450); Red Blood Count 3.44 10^6/uL (3.63-4.92); Red Cell Distribution Width 13.5 % (12-17); White Blood Count 22.2 10^3/uL (3.8-11.8)
[2024-07-17 06:12] LABS: ABS Basophils 0.1 10^3/uL (0.0-0.1); ABS Eosinophils 0.1 10^3/uL (0.0-0.5); ABS Lymphocytes 18.9 10^3/uL (1.0-4.8); ABS Monocytes 0.5 10^3/uL (0.0-0.9); ABS Neutrophils 2.6 10^3/uL (1.5-7.6); ABS Nucleated RBC 0.05 10^3/ul; Eosinophil % 0.5 %; Lymphocyte % 84.8 %; Nucleated Red Blood Cells % 0.2 %/100WBC (0.0-0.8); Smudge Cells Present
[2024-07-17 06:42] LABS: Calcium 7.9 mg/dL (8.6-10.3); Creatinine, Serum 0.54 mg/dL (0.51-0.95); Potassium 4.1 mmol/L (3.5-5.0)
[2024-07-17 14:02] VITALS: BP 165/79
== END 2024-07-17 14:38 | disposition home or self-care (01) | DRG 482 ==
LOC: ED 16:59 → EDHOLD 20:03 → SUATTDRO 20:03 → SSU 22:54
PROVIDERS: ADMIT Internal Medicine; ATTEND Internal Medicine